=== PATIENT | male | born 1935 | race Two or more races ===

== ENCOUNTER 2019-04-26 14:33 | Emergency (ER) | payer OTHER ==
[~2019-04-26] VITALS: Ht 165.1 cm; Wt 77.1 kg
[2019-04-26 16:53] VITALS: BP 132/80
== END 2019-04-26 16:56 | disposition home or self-care (01) ==
LOC: ER 14:33 → EDBD 14:33 → ER 16:56
DX: M50.31 Other cervical disc degeneration, high cervical region (principal); V49.9XXA Car occupant (driver) (passenger) injured in unspecified traffic accident, initial encounter; Y93.89 Activity, other specified; Y92.488 Other paved roadways as the place of occurrence of the external cause; Y99.8 Other external cause status
CPT/HCPCS: 72125; 72128; 99284; L0120